=== PATIENT | female | born 1995 | race Two or more races ===

== ENCOUNTER 2016-11-16 11:38 | Emergency (ER) | payer BC, OTHER ==
[~2016-11-16] VITALS: Ht 152.4 cm; Wt 63.0 kg
[2016-11-16 11:41] VITALS: Ht 152.4 cm; Wt 63.0 kg
[2016-11-16] MEDS ORDERED: SOD CHLORIDE 0.9% 1,000 ML IV STA (12:31)
[2016-11-16] MEDS ORDERED: ONDANSETRON 4 MG INJ IV STA (12:31)
[2016-11-16 13:04] LABS: ADD SCAN DIFF NO
[2016-11-16 13:05] LABS: BASOPHIL # 0.1 10^3/ul (0.0-0.1); BASOPHILS % 0.8 % (0.0-2.0); EOSINOPHILS % 0.1 % (0.0-7.0); HEMATOCRIT 40.3 % (37.0-47.0); HEMOGLOBIN 13.7 g/dl (12.0-16.0); LYMPHOCYTES # 2.2 10^3/ul (0.8-2.9); LYMPHOCYTES % 25.2 % (15.0-51.0); MEAN CORPUSCULAR HEMOGLOBIN 28.8 pg (29.0-33.0); MEAN CORPUSCULAR VOLUME 84.8 fl (82.0-101.0); MONOCYTE # 0.4 10^3/ul (0.3-0.9); MONOCYTES % 4.6 % (0.0-11.0); NEUTROPHIL # 5.9 10^3/ul (1.6-7.5); NEUTROPHILS % 68.8 % (39.0-77.0); PLATELET COUNT 469 10^3/UL (140-415); RED BLOOD COUNT 4.75 10^6/ul (4.20-5.40); RED CELL DISTRIBUTION WIDTH 12.5 % (11.5-14.5); WHITE BLOOD COUNT 8.6 10^3/ul (4.8-10.8)
[2016-11-16 13:09] LABS: ADD UMIC YES; UR ASCORBIC ACID NEGATIVE (NEGATIVE); UR BILIRUBIN (Dip) NEGATIVE (NEGATIVE); UR BLOOD (Dip) NEGATIVE (NEGATIVE); UR CLARITY CLEAR (CLEAR); UR COLOR YELLOW (YELLOW); UR GLUCOSE (Dip) NEGATIVE (NEGATIVE); UR KETONES (Dip) NEGATIVE (NEGATIVE); UR LEUKOCYTE ESTERASE (Dip) NEGATIVE Leu/ul (NEGATIVE); UR MUCUS FEW /HPF (NONE SEEN); UR NITRITE (Dip) NEGATIVE (NEGATIVE); UR RBC 15 /HPF (0-5); UR SPECIFIC GRAVITY (Dip) 1.018 (1.003-1.030); UR TOTAL PROTEIN (Dip) 2+ mg/dl (NEGATIVE); UR UROBILINOGEN (Dip) NEGATIVE (NEGATIVE)
[2016-11-16 13:24] LABS: ALBUMIN 5.2 g/dl (3.3-4.9); ALBUMIN/GLOBULIN RATIO 1.57; BILIRUBIN,INDIRECT 0.5 mg/dl (0-1.1); BILIRUBIN,TOTAL 0.5 mg/dl (0.2-1.3); CALCIUM 9.8 mg/dl (8.4-10.2); CREATININE 0.49 mg/dl (0.44-1.00); POTASSIUM 3.7 mmol/L (3.5-5.1); TOTAL PROTEIN 8.5 g/dl (6.1-8.1)
[2016-11-16] MEDS ORDERED: ONDA8TAB14 PO (13:47)
--- NOTE | 2016-12-02 09:59 | ERD ---
ER Documentation Chief Complaint Date/Time DATE: 12/02/16 TIME: 09:57 Chief Complaint abd pain with nausea/vomiting after drinking alcohol last night HPI 21-year-old female presents with vomiting which is nonbilious nonbloody and epigastric pain. She did drink a lot of alcohol last night. She has diarrhea as well. There is no history of fever, lower abdominal pain, right-sided abdominal pain. She denies any foreign travel or suspect food. ROS All systems reviewed and are negative except as per history of present illness. Medications Home Meds Active Scripts Ondansetron (Ondansetron Odt) 8 Mg Tab.rapdis, 8 MG PO Q6H Y for NAUSEA AND/OR VOMITING for 3 Days, #8 TAB Prov:ERIC ARTHUR MD 11/16/16 Allergies Allergies: Coded Allergies: No Known Allergy (Unverified , 11/05/13) PMhx/Soc Medical and Surgical Hx: pt denies Medical Hx, pt denies Surgical Hx History of Surgery: No Anesthesia Reaction: No Hx Neurological Disorder: No Hx Respiratory Disorders: No Hx Cardiac Disorders: No Hx Psychiatric Problems: No Hx Miscellaneous Medical Probl: No Hx Alcohol Use: No Hx Substance Use: No Hx Tobacco Use: No Smoking Status: Never smoker Physical Exam Physical Exam Const: [] Candace, [id number]. Uncomfortable due to active vomiting. Head: Atraumatic Eyes: Normal Conjunctiva ENT: Normal External Ears, Nose and Mouth. Neck: Full range of motion..~ No meningismus. Resp: Clear to auscultation bilaterally Cardio: Regular rate and rhythm, no murmurs Abd: Soft, minimal epigastric tenderness. No tenderness at McBurney's point no Ty sign., non distended. Normal bowel sounds Skin: No petechiae or rashes Back: No midline or flank tenderness Ext: No cyanosis, or edema Neur: Awake and alert Psych: Normal Mood and Affect Results 24 hrs Laboratory Tests Test 11/16/16 12:57 White Blood Count 8.610^3/ul Red Blood Count 4.7510^6/ul Hemoglobin 13.7g/dl Hematocrit 40.3% Mean Corpuscular Volume 84.8fl Mean Corpuscular Hemoglobin 28.8pg Mean Corpuscular Hemoglobin Concent 34.0g/dl Red Cell Distribution Width 12.5% Platelet Count 48301^3/UL Mean Platelet Volume 10.0fl Neutrophils % 68.8% Lymphocytes % 25.2% Monocytes % 4.6% Eosinophils % 0.1% Basophils % 0.8% Nucleated Red Blood Cells % 0.0/100WBC Neutrophils # 5.910^3/ul Lymphocytes # 2.210^3/ul Monocytes # 0.410^3/ul Eosinophils # 0.010^3/ul Basophils # 0.110^3/ul Nucleated Red Blood Cells # 0.010^3/ul Urine Color YELLOW Urine Clarity CLEAR Urine pH 9.0 Urine Specific [place] 1.018 Urine Ketones NEGATIVEmg/dL Urine Nitrite NEGATIVEmg/dL Urine Bilirubin NEGATIVEmg/dL Urine Urobilinogen NEGATIVEmg/dL Urine Leukocyte Esterase NEGATIVELeu/ul Urine Microscopic RBC 15/HPF Urine Microscopic WBC 1/HPF Urine Mucus FEW/HPF Urine Hemoglobin NEGATIVEmg/dL Urine Glucose NEGATIVEmg/dL Urine Total Protein 2+mg/dl Sodium Level 142mmol/L Potassium Level 3.7mmol/L Chloride Level 97mmol/L Carbon Dioxide Level 26mmol/L Anion Gap 23 Blood Urea Nitrogen 9mg/dl Creatinine 0.49mg/dl Glucose Level 100mg/dl Calcium Level 9.8mg/dl Total Bilirubin 0.5mg/dl Direct Bilirubin 0.00mg/dl Indirect Bilirubin 0.5mg/dl Aspartate Amino Transf (AST/SGOT) 28IU/L Alanine Aminotransferase (ALT/SGPT) 25IU/L Alkaline Phosphatase 54IU/L Total Protein 8.5g/dl Albumin 5.2g/dl Globulin 3.30g/dl Albumin/Globulin Ratio 1.57 Lipase 46U/L Serum HCG, Qualitative NEGATIVE Current Medications Medications (Trade) Dose Ordered Sig/Demetrius Route PRN Reason Start Time Stop Time Status Last Admin Dose Admin Sodium Chloride (NS) 1,000 ml @ 1,000 mls/hr Q1H STAT IV 11/16/16 12:31 11/16/16 13:30 DC 11/16/16 13:01 Ondansetron HCl (Zofran Inj) 4 mg ONCE STAT IV 11/16/16 12:31 11/16/16 12:33 DC 11/16/16 13:01 Procedures/MDM Patient was given Zofran 4 mg by mouth 1 L normal saline IV, CBC and CMP and lipase showed no acute abnormalities. Urine is negative for leukocytes, nitrites, glucose. There is some hemoglobin. HCG is negative. Patient felt better after observation treatment. Patient presents with vomiting one days duration possibly due to alcohol intoxication. She may have a viral illness as well. Patient will be treated with Zofran at home and instructions for clear fluids, and instructed to return for vomiting despite treatment, lower abdominal pain, fevers, blood, new worsening symptoms with primary care doctor this week. The patient was stable with no new complaints during the ER course. Clinically, there is no current evidence to suggest meningitis, sepsis, acute abdomen, pneumonia, acute coronary syndrome, pulmonary embolism, or any other emergent condition appearing to require further evaluation or hospitalization. The patient should certainly return for any new or worsening symptoms per the aftercare instructions. They should otherwise follow-up with her primary care doctor for reevaluation this week. Departure Diagnosis: Primary Impression: Nausea and vomiting Vomiting type: unspecified Vomiting Intractability: unspecified Qualified Code: R11.2 - Nausea and vomiting, intractability of vomiting not specified, unspecified vomiting type Condition: Stable Patient Instructions: Nausea and Vomiting-Adult Additional Instructions: Labs normal today. Likely effects of drinking alcohol or possible viral infection. Drink clear fluid or sports drinks. recheck for new or worsening symptoms with primary doctor this week. ERIC ARTHUR MD Dec 02, 2016 09:59
== END 2016-11-16 14:02 | disposition home or self-care (01) ==
LOC: FTE 11:38
DX: R11.2 Nausea with vomiting, unspecified (principal)
CPT/HCPCS: 36415; 80053; 81001; 83690; 84703; 85025; 96374; J2405; J7030; Z7502

== ENCOUNTER 2017-10-10 21:44 | Emergency (ER) | END 2017-10-11 01:46 | disposition home or self-care (01) ==